=== PATIENT | female | born 1975 | race Caucasian/White ===

== ENCOUNTER 2020-02-04 14:15 | Inpatient (IN) | payer MEDICAID, OTHER ==
[~2020-02-04] VITALS: Ht 162.6 cm; Wt 114.2 kg
[2020-02-04 15:51] LABS: Basophils # (auto) 0 10 ^3/uL (0-0.2); Basophils % (auto) 0.5 % (0.0-2.0); Eosinophils # (auto) 0 10 ^3/uL (0-0.8); Eosinophils % (auto) 0.1 % (0.0-7.0); Hematocrit 43.2 % (36.0-46.0); Hemoglobin 13.9 g/dL (12.2-16.2); Lymphocytes # (auto) 1.1 10 ^3/uL (0.4-5.4); Lymphocytes % (auto) 22.7 % (10.0-50.0); Mean Corpuscular Hgb Conc. 32.2 g/dL (32.0-36.0); Monocytes # (auto) 0.5 10 ^3/uL (0-1.3); Monocytes % (auto) 11.4 % (0.0-12.0); Neutrophils # (auto) 3.1 10 ^3/uL (1.6-8.6); Neutrophils % (auto) 65.3 % (37.0-80.0); Platelet Count (auto) 204 10^3/uL (140-450); Red Blood Cells 4.97 10^6/uL (4.0-5.20); Red Cell Distribution Width 14.7 % (11.8-14.3); White Blood Cell 4.7 10^3/uL (4.4-10.8)
[2020-02-04] MEDS ORDERED: PANTOPRAZOLE 40 MG/10 ML VIAL INJ IV ONE (16:00)
[2020-02-04] MEDS ORDERED: SODIUM CHLORIDE 0.9% 1,000 ML IV ONE (16:00)
[2020-02-04] MEDS ORDERED: DOXYCYCLINE 100 MG TAB/CAP PO ONE (16:00)
[2020-02-04] MEDS ORDERED: cefTRIAXone 1GM/50ML D5W 50 ML IV ONE (16:00)
[2020-02-04] MEDS ORDERED: ONDANSETRON HCL 4 MG/2 ML VIAL IV ONE (16:00)
[2020-02-04 16:37] LABS: Albumin 3.5 g/dL (3.4-5.0); Calcium 8.6 mg/dL (8.5-10.1); Potassium 4.4 mmol/L (3.5-5.1)
[2020-02-04 16:38] LABS: Amylase 36 U/L (25-115); Lipase 91 U/L (73-393)
[2020-02-04 16:40] LABS: BUN/Creatinine Ratio 10.4; Bilirubin, Total 0.2 mg/dL (0.2-1.0); Total Protein 8.3 g/dL (6.4-8.2)
[2020-02-04] MEDS ORDERED: ZINC SULFATE 220mg CAP or TAB PO ONE (16:45)
[2020-02-04] MEDS ORDERED: ASCORBIC ACID 500 MG TAB PO ONE (16:45)
[2020-02-04 16:50] LABS: Urine Bacteria FEW /hpf (None Seen); Urine Blood Negative /uL (Negative); Urine Mucus FEW (None Seen); Urine Specific Gravity 1.026 (1.001-1.035); Urine WBC 2 /hpf (0 - 5)
[2020-02-04 17:07] LABS: Alcohol, Urine < 3.0 mg/dL (0-10); Amphetamine Screen, Urine NEGATIVE (NEGATIVE); Barbiturate Scree,Urine NEGATIVE (NEGATIVE); Benzodiazephine Screen, Urine NEGATIVE (NEGATIVE); Cannabinoid Screen, Urine POSITIVE (NEGATIVE); Cocaine Screen, Urine NEGATIVE (NEGATIVE); Opiate Scree,Urine NEGATIVE (NEGATIVE); Phencyclidine Screen, Urine NEGATIVE (NEGATIVE)
[2020-02-04] MEDS ORDERED: FUROSEMIDE 20 MG/2 ML VIAL IV ONE (17:45)
[2020-02-04] MEDS ORDERED: DOCUSATE SOD 100 MG CAP PO PRN (17:45)
[2020-02-04] MEDS ORDERED: FAMOTIDINE 20 MG TAB PO ONE (17:45)
[2020-02-04] MEDS ORDERED: MORPHINE SULF INJ 2 MG/ML SYRINGE 1ML IV PRN (17:45)
[2020-02-04] MEDS ORDERED: ACETAMINOPHEN 500 MG TAB PO PRN (17:45)
[2020-02-04] MEDS ORDERED: ALUM & MAG HYDROX-SIMETH LIQ(MAALOX) 30 ML PO PRN (17:45)
[2020-02-04] MEDS ORDERED: NITROGLYCERIN 0.4 MG SL TAB SL PRN (17:45)
[2020-02-04] MEDS ORDERED: DexAMETHasone 4 MG TAB PO ONE (17:45)
[2020-02-04] MEDS: FUROSEMIDE 20 MG/2 ML VIAL IV SCH (18:00)
[2020-02-04] MEDS: SODIUM CHLORIDE 0.9% 1,000 ML IV SCH (18:01)
[2020-02-04 18:34] LABS: Cholesterol 185 mg/dL (< 200); HDL Cholesterol 40 mg/dL (40-59); LDL Cholesterol 136 mg/dL (< 100); Triglycerides 97 mg/dL (< 150)
[2020-02-04 18:58] LABS: CRP High Sensitivity 0.77 mg/dL (< 0.3); Magnesium 2.4 mg/dL (1.6-2.6)
[2020-02-04] MEDS: LORazepam 0.5 MG TAB PO PRN (20:41)
[2020-02-04] MEDS: ONDANSETRON HCL 4 MG/2 ML VIAL IV PRN (20:42)
[2020-02-04] MEDS ORDERED: BUDESONIDE (INHALATION) 180 MCG IH IN SCH (22:00)
[2020-02-04] MEDS ORDERED: ALBUTEROL SULF HFA 90MCG INH 200DOSE IN SCH (22:00)
[2020-02-04] MEDS: FAMOTIDINE 20 MG TAB PO SCH (23:30)
[2020-02-04] MEDS: DOXYCYCLINE 100MG/250ML 250 ML IV SCH (23:30)
[2020-02-04] MEDS: HYDROcodone-ACET 5/325MG TAB PO PRN (23:31)
[2020-02-04] MEDS: guaiFENesin-CODEINE Liq 5 ML UD PO PRN (23:31)
[2020-02-05] MEDS: ACETAMINOPHEN 325 MG TAB PO PRN (02:46)
[2020-02-05] MEDS ORDERED: CITA-73 PO (03:06)
[2020-02-05] MEDS: LORazepam 0.5 MG TAB PO PRN (03:40)
[2020-02-05] MEDS: guaiFENesin-CODEINE Liq 5 ML UD PO PRN ×3 (03:40→20:39)
[2020-02-05 05:00] VITALS: BP_SYST 100; BP_SYST 103; BP_DIAS 50
[2020-02-05] MEDS: FUROSEMIDE 20 MG/2 ML VIAL IV SCH ×2 (05:17→18:33)
[2020-02-05 05:47] LABS: Basophils # (auto) 0 10 ^3/uL (0-0.2); Basophils % (auto) 0.5 % (0.0-2.0); Eosinophils # (auto) 0 10 ^3/uL (0-0.8); Eosinophils % (auto) 0.1 % (0.0-7.0); Hemoglobin 12.9 g/dL (12.2-16.2); Lymphocytes # (auto) 1.1 10 ^3/uL (0.4-5.4); Lymphocytes % (auto) 27.5 % (10.0-50.0); Mean Corpuscular Hemoglobin 28.4 pg (28.0-32.0); Monocytes # (auto) 0.4 10 ^3/uL (0-1.3); Monocytes % (auto) 9.8 % (0.0-12.0); Neutrophils # (auto) 2.6 10 ^3/uL (1.6-8.6); Neutrophils % (auto) 62.1 % (37.0-80.0); Nucleated Red Blood Cells % 0.1 %; Platelet Count (auto) 192 10^3/uL (140-450); Red Blood Cells 4.54 10^6/uL (4.0-5.20); Red Cell Distribution Width 14.8 % (11.8-14.3); White Blood Cell 4.1 10^3/uL (4.4-10.8)
[2020-02-05 06:00] LABS: INR 0.98 (0.9-1.15); Partial Thromboplastin Time 28.2 sec (23.0-31.2)
[2020-02-05 06:03] LABS: Chloride 105 mmol/L (98-107); Potassium 3.7 mmol/L (3.5-5.1); Sodium 134 mmol/L (136-145)
[2020-02-05 06:11] LABS: Alanine Aminotransferase 23 U/L (13-56); Albumin 3.2 g/dL (3.4-5.0); Alkaline Phosphatase 93 U/L (45-117); Anion Gap 7 (5-15); Aspartate Aminotransferase 18 U/L (15-37); BUN/Creatinine Ratio 14.3; Bilirubin, Total 0.2 mg/dL (0.2-1.0); Blood Urea Nitrogen 10 mg/dL (7-18); CRP High Sensitivity 0.75 mg/dL (< 0.3); Calcium 8.1 mg/dL (8.5-10.1); Carbon Dioxide 22 mmol/L (21-32); GFR African American 118 mL/min; GFR Non-African American 98 mL/min; Glucose 112 mg/dL (74-106); Lactate Dehydrogenase 190 U/L (84-246); Magnesium 2.2 mg/dL (1.6-2.6); Total Protein 7.9 g/dL (6.4-8.2); Uric Acid 3.2 mg/dL (2.6-6.0)
--- NOTE | 2020-02-05 07:30 | NUR ---
Opening Shift Note Assumed care of patient, awake and alert. No S/S of distress/SOB or pain. Instructed on POC and to call for assist PRN, will continue to monitor for changes Q1hr and PRN.
[2020-02-05 09:00] VITALS: BP 138/78
[2020-02-05] MEDS: BUDESONIDE (INHALATION) 180 MCG IH IN SCH ×3 (10:00→21:22)
[2020-02-05] MEDS: DOXYCYCLINE 100MG/250ML 250 ML IV SCH ×2 (10:14→23:06)
[2020-02-05] MEDS: DexAMETHasone 4 MG TAB PO SCH (10:15)
[2020-02-05] MEDS: ZINC SULFATE 220mg CAP or TAB PO SCH (10:15)
[2020-02-05] MEDS: FAMOTIDINE 20 MG TAB PO SCH ×2 (10:15→23:06)
[2020-02-05] MEDS: CHOLECALCIFEROL (VITD3) 2,000 UNIT CAP PO SCH (10:16)
[2020-02-05] MEDS: ASCORBIC ACID 1,000 MG TAB PO SCH (10:16)
[2020-02-05] MEDS: ENOXAPARIN SOD 40 MG/0.4 ML SYRINGE SC SCH (10:16)
[2020-02-05] MEDS: SODIUM CHLORIDE 0.9% 1,000 ML IV SCH (11:31)
[2020-02-05] MEDS: ONDANSETRON HCL 4 MG/2 ML VIAL IV PRN ×3 (11:36→20:38)
[2020-02-05] MEDS: MORPHINE SULF INJ 2 MG/ML SYRINGE 1ML IV PRN ×2 (12:27→18:33)
[2020-02-05 12:46] VITALS: BP 108/73
[2020-02-05 13:35] VITALS: BP 108/74
[2020-02-05] MEDS: ALBUTEROL SULF HFA 90MCG INH 200DOSE IN SCH ×2 (14:00→21:21)
--- NOTE | 2020-02-05 14:26 | NUR ---
Respiratory note: PT HAS BEEN COUGHING ALL MORNING. PT HAS STOPPED COUGHING AND WANTS TO REST. PT CONCERNED MDI COULD MAKE HER START COUGHING AGAIN.
--- NOTE | 2020-02-05 19:20 | NUR ---
Opening Shift Note Assumed care of patient, awake and alert. No S/S of distress/SOB or pain. Safety measures in place bed in lowest position, side rails up x2, and call light within reach. Instructed on POC and to call for assist PRN, will continue to monitor for changes Q1hr and PRN.
--- NOTE | 2020-02-05 21:24 | NUR ---
RT NOTE PT WAS SEEN BY RT FOR MDI TX. PT TOLERATES ALBUTEROL WELL VIA SPACER. PT RINSED MOUTH POST PULMICORT INHALER. CONT ORDERED Addendum: 02/05/20 at 2126 by Tanja Orlando RT Amended: Links added.
[2020-02-05 22:33] VITALS: BP 114/70
[2020-02-06] MEDS: LORazepam 0.5 MG TAB PO PRN ×4 (02:00→21:59)
[2020-02-06] MEDS: ONDANSETRON HCL 4 MG/2 ML VIAL IV PRN ×5 (02:00→20:33)
[2020-02-06] MEDS: SODIUM CHLORIDE 0.9% 1,000 ML IV SCH ×2 (02:58→20:34)
[2020-02-06 05:20] VITALS: BP 109/62
[2020-02-06] MEDS: FUROSEMIDE 20 MG/2 ML VIAL IV SCH ×2 (06:22→18:31)
[2020-02-06] MEDS: BUDESONIDE (INHALATION) 180 MCG IH IN SCH ×2 (06:34→21:41)
[2020-02-06] MEDS: ALBUTEROL SULF HFA 90MCG INH 200DOSE IN SCH ×3 (06:34→21:41)
[2020-02-06] MEDS: HYDROcodone-ACET 5/325MG TAB PO PRN (06:36)
--- NOTE | 2020-02-06 07:25 | NUR ---
Opening Shift Note Assumed care of patient, awake and alert. No S/S of distress, reports SOB with activity, reports chest pain. Instructed on POC and to call for assist PRN, will continue to monitor for changes Q1hr and PRN.
[2020-02-06] MEDS: MORPHINE SULF INJ 2 MG/ML SYRINGE 1ML IV PRN ×2 (08:03→14:03)
[2020-02-06 09:00] VITALS: BP_SYST 103; BP_SYST 137; BP_DIAS 74; BP_DIAS 75
[2020-02-06] MEDS: ZINC SULFATE 220mg CAP or TAB PO SCH (10:39)
[2020-02-06] MEDS: DOXYCYCLINE 100MG/250ML 250 ML IV SCH ×2 (10:40→21:59)
[2020-02-06] MEDS: FAMOTIDINE 20 MG TAB PO SCH ×2 (10:40→21:59)
[2020-02-06] MEDS: DexAMETHasone 4 MG TAB PO SCH (10:40)
[2020-02-06] MEDS: ENOXAPARIN SOD 40 MG/0.4 ML SYRINGE SC SCH (10:41)
[2020-02-06] MEDS: CHOLECALCIFEROL (VITD3) 2,000 UNIT CAP PO SCH (10:41)
[2020-02-06] MEDS: ASCORBIC ACID 1,000 MG TAB PO SCH (10:41)
[2020-02-06 12:42] VITALS: BP 116/67
[2020-02-06 17:00] VITALS: BP 117/69
--- NOTE | 2020-02-06 21:40 | NUR ---
PT REFUSED MDI'S AT THIS TIME. STATED SHE IS TOO NAUSEATED FOR THE MEDS. POX ON ROOM AIR IS 98% RR 20
[2020-02-06 22:00] VITALS: BP 113/70
[2020-02-07] MEDS: ONDANSETRON HCL 4 MG/2 ML VIAL IV PRN ×4 (04:20→22:15)
[2020-02-07 05:00] VITALS: BP 112/64
[2020-02-07] MEDS: FUROSEMIDE 20 MG/2 ML VIAL IV SCH ×2 (05:48→18:05)
[2020-02-07] MEDS: ALBUTEROL SULF HFA 90MCG INH 200DOSE IN SCH ×3 (06:35→21:22)
[2020-02-07] MEDS: BUDESONIDE (INHALATION) 180 MCG IH IN SCH ×2 (06:36→21:23)
[2020-02-07 09:00] VITALS: BP 99/63
[2020-02-07] MEDS: ZINC SULFATE 220mg CAP or TAB PO SCH (10:00)
[2020-02-07] MEDS: DOXYCYCLINE 100MG/250ML 250 ML IV SCH ×2 (10:02→22:16)
[2020-02-07] MEDS: FAMOTIDINE 20 MG TAB PO SCH ×2 (10:03→22:16)
[2020-02-07] MEDS: DexAMETHasone 4 MG TAB PO SCH (10:03)
[2020-02-07] MEDS: ASCORBIC ACID 1,000 MG TAB PO SCH (10:04)
[2020-02-07] MEDS: CHOLECALCIFEROL (VITD3) 2,000 UNIT CAP PO SCH (10:04)
[2020-02-07] MEDS: ENOXAPARIN SOD 40 MG/0.4 ML SYRINGE SC SCH (10:07)
[2020-02-07] MEDS: SODIUM CHLORIDE 0.9% 1,000 ML IV SCH (12:18)
[2020-02-07 13:00] VITALS: BP 103/68
[2020-02-07 17:00] VITALS: BP 113/64
--- NOTE | 2020-02-07 19:30 | NUR ---
Opening Shift Note Assumed care of patient, awake and alert. No S/S of distress/SOB or pain. Instructed on POC and to call for assist PRN. Bed in lowest locked position, call light within reach, side rails up x2. Will continue to monitor for changes Q1hr and PRN.
[2020-02-07 22:00] VITALS: BP 138/84
[2020-02-08] MEDS: LORazepam 0.5 MG TAB PO PRN (00:03)
[2020-02-08] MEDS: ONDANSETRON HCL 4 MG/2 ML VIAL IV PRN (04:23)
[2020-02-08] MEDS: SODIUM CHLORIDE 0.9% 1,000 ML IV SCH ×2 (04:24→21:38)
[2020-02-08 05:00] VITALS: BP 137/70
[2020-02-08] MEDS: FUROSEMIDE 20 MG/2 ML VIAL IV SCH ×2 (06:00→17:55)
--- NOTE | 2020-02-08 06:40 | NUR ---
IV discontinued IV infiltrated, removed with catheter fully intact. Pressure dressing applied. Attempted new IV insertion, per patient "can we wait until later? I had a bad night and I barely fell asleep." Will endorse to day RN.
[2020-02-08] MEDS: ALBUTEROL SULF HFA 90MCG INH 200DOSE IN SCH ×3 (07:09→21:49)
[2020-02-08] MEDS: BUDESONIDE (INHALATION) 180 MCG IH IN SCH ×2 (07:09→21:49)
[2020-02-08 07:32] LABS: Basophils # (auto) 0 10 ^3/uL (0-0.2); Basophils % (auto) 0.2 % (0.0-2.0); Eosinophils # (auto) 0 10 ^3/uL (0-0.8); Eosinophils % (auto) 0.1 % (0.0-7.0); Hematocrit 38.4 % (36.0-46.0); Hemoglobin 12.9 g/dL (12.2-16.2); Lymphocytes # (auto) 1.2 10 ^3/uL (0.4-5.4); Lymphocytes % (auto) 23.5 % (10.0-50.0); Mean Corpuscular Hemoglobin 28.7 pg (28.0-32.0); Mean Corpuscular Hgb Conc. 33.5 g/dL (32.0-36.0); Mean Corpuscular Volume 85.8 fL (80.0-100.0); Monocytes # (auto) 0.7 10 ^3/uL (0-1.3); Monocytes % (auto) 13.8 % (0.0-12.0); Neutrophils # (auto) 3.2 10 ^3/uL (1.6-8.6); Neutrophils % (auto) 62.4 % (37.0-80.0); Platelet Count (auto) 233 10^3/uL (140-450); Red Blood Cells 4.47 10^6/uL (4.0-5.20); White Blood Cell 5.2 10^3/uL (4.4-10.8)
[2020-02-08 07:42] LABS: Potassium 3.1 mmol/L (3.5-5.1)
[2020-02-08 07:51] LABS: Albumin 3.3 g/dL (3.4-5.0); BUN/Creatinine Ratio 9.9; Bilirubin, Total 0.3 mg/dL (0.2-1.0); Calcium 8.7 mg/dL (8.5-10.1); Total Protein 7.8 g/dL (6.4-8.2)
[2020-02-08 09:00] VITALS: BP 105/48
--- NOTE | 2020-02-08 09:05 | NUR ---
at bedside MD Kaminski at bedside, aware of patient's status. New orders received for chest xray, cbc, cmp tomorrow. Will cont to monito. Unable to obtain IV acces at this time, will try again later MD aware
[2020-02-08] MEDS: ASCORBIC ACID 1,000 MG TAB PO SCH (09:50)
[2020-02-08] MEDS: CHOLECALCIFEROL (VITD3) 2,000 UNIT CAP PO SCH (09:50)
[2020-02-08] MEDS: DexAMETHasone 4 MG TAB PO SCH (09:50)
[2020-02-08] MEDS: ZINC SULFATE 220mg CAP or TAB PO SCH (09:51)
[2020-02-08] MEDS: FAMOTIDINE 20 MG TAB PO SCH ×2 (09:51→22:09)
[2020-02-08] MEDS: ENOXAPARIN SOD 40 MG/0.4 ML SYRINGE SC SCH ×2 (09:52→22:10)
[2020-02-08] MEDS: ACETAMINOPHEN 325 MG TAB PO PRN (11:17)
--- NOTE | 2020-02-08 11:17 | NUR ---
Patient c/o headache and requesting tylenol at this time for pain 04/14. Medicated as ordered. Will cont to monitor
--- NOTE | 2020-02-08 12:17 | NUR ---
Patient denies any pain at this time. Cont care
[2020-02-08 13:00] VITALS: BP 130/80
--- NOTE | 2020-02-08 14:18 | NUR ---
Assessment Patient is a 44-year-old female who is alert and oriented. Prior to admission patient lived with family and functioned independently. Patient informed me she can care for her own ADLs. Patient informed me she does not have any medical equipment now. Per patient she will return home to her prior living arrangements and family will transport her home. Patient does not have a primary doctor. Advised patient to contact health plan so they can assign her one and she can follow up with her Primary doctor after discharge. Informed patient she has the right to participate in all discharge planning. Patient verbalize understanding.
[2020-02-08] MEDS ORDERED: METOCLOPRAMIDE HCL 10 MG TAB PO ONE (15:00)
--- NOTE | 2020-02-08 16:00 | NUR ---
Nutrition Assessment Notes Please refer to link for full assessment notes. Est Energy needs: 2635-9340 kcals (12-15 kcal/kgBW) Est Protein needs: 109-136 gms/day (1.5-2.0 gm/kgIBW) Will continue to monitor and reassess prn. Addendum: 02/08/20 at [address] Amended: Links added.
[2020-02-08 16:46] VITALS: BP 101/55
[2020-02-08] MEDS: DOXYCYCLINE 100MG/250ML 250 ML IV SCH (17:00)
--- NOTE | 2020-02-08 19:02 | NUR ---
Patient care endorsed to Jennifer engle. Patient laying in bed in no acute distress or sob noted at this time. Call light within reach
[2020-02-08 21:51] VITALS: BP 111/63
[2020-02-09] MEDS: HYDROcodone-ACET 5/325MG TAB PO PRN (00:08)
[2020-02-09] MEDS: METOCLOPRAMIDE HCL 10 MG TAB PO PRN ×3 (00:08→18:08)
[2020-02-09 05:00] VITALS: BP 100/56
[2020-02-09] MEDS: DOXYCYCLINE 100MG/250ML 250 ML IV SCH ×2 (05:36→18:07)
[2020-02-09] MEDS: FUROSEMIDE 20 MG/2 ML VIAL IV SCH ×2 (05:36→18:07)
[2020-02-09] MEDS: BUDESONIDE (INHALATION) 180 MCG IH IN SCH ×2 (06:22→22:03)
[2020-02-09] MEDS: ALBUTEROL SULF HFA 90MCG INH 200DOSE IN SCH ×3 (06:22→22:02)
[2020-02-09 07:10] LABS: Basophils # (auto) 0 10 ^3/uL (0-0.2); Basophils % (auto) 0.2 % (0.0-2.0); Eosinophils # (auto) 0 10 ^3/uL (0-0.8); Hematocrit 37.9 % (36.0-46.0); Hemoglobin 12.3 g/dL (12.2-16.2); Mean Corpuscular Hemoglobin 28.2 pg (28.0-32.0); Mean Corpuscular Hgb Conc. 32.5 g/dL (32.0-36.0); Mean Corpuscular Volume 86.8 fL (80.0-100.0); Monocytes # (auto) 0.6 10 ^3/uL (0-1.3); Monocytes % (auto) 8.1 % (0.0-12.0); Neutrophils # (auto) 5.4 10 ^3/uL (1.6-8.6); Neutrophils % (auto) 77.7 % (37.0-80.0); Platelet Count (auto) 269 10^3/uL (140-450); Red Blood Cells 4.37 10^6/uL (4.0-5.20); Red Cell Distribution Width 14.4 % (11.8-14.3)
[2020-02-09 07:35] LABS: Potassium 3.4 mmol/L (3.5-5.1)
[2020-02-09 07:52] LABS: Albumin 3.1 g/dL (3.4-5.0); BUN/Creatinine Ratio 21.7; Bilirubin, Total 0.3 mg/dL (0.2-1.0); Calcium 8.6 mg/dL (8.5-10.1); Total Protein 7.4 g/dL (6.4-8.2)
[2020-02-09 09:00] VITALS: BP 117/60
[2020-02-09] MEDS: FAMOTIDINE 20 MG TAB PO SCH ×2 (10:21→21:35)
[2020-02-09] MEDS: DexAMETHasone 4 MG TAB PO SCH (10:21)
[2020-02-09] MEDS: ASCORBIC ACID 1,000 MG TAB PO SCH (10:21)
[2020-02-09] MEDS: ENOXAPARIN SOD 40 MG/0.4 ML SYRINGE SC SCH ×2 (10:21→21:35)
[2020-02-09] MEDS: CHOLECALCIFEROL (VITD3) 2,000 UNIT CAP PO SCH (10:21)
[2020-02-09] MEDS: ZINC SULFATE 220mg CAP or TAB PO SCH (10:21)
--- NOTE | 2020-02-09 12:24 | NUR ---
N/V Patient states she threw up in the bathroom. No emesis noted at this time but patient also states she started bleeding "out of her vagina again". She states she was on her period 2 days ago but restarted today. VSS. Patient medicated with Reglan as ordered, MD Kaminski aware and new orders to jackelin Longo received. Patient assisted to get cleaned up and back to bed she states feeling better. Call light within reach. Will cont care
[2020-02-09 13:00] VITALS: BP 125/65
[2020-02-09] MEDS: SODIUM CHLORIDE 0.9% 1,000 ML IV SCH (14:18)
[2020-02-09 16:30] VITALS: BP 112/54
--- NOTE | 2020-02-09 17:20 | NUR ---
Pulm at bedside MD Ramírez aware of patient's status. Patient currently on room air and sats WNL. No new orders received. Cont care
--- NOTE | 2020-02-09 18:00 | NUR ---
Patient denies emesis today, states nausea at this time. Pt tolerating meals well she states. Medicated with Reglan as ordered. Cont care
--- NOTE | 2020-02-09 19:10 | NUR ---
Patient care endorsed to Carlita engle. Patient sitting up in bed no acute distress or sob noted. Call light within reach
[2020-02-09 22:00] VITALS: BP 107/58
[2020-02-10 05:00] VITALS: BP 106/64
[2020-02-10] MEDS: METOCLOPRAMIDE HCL 10 MG TAB PO PRN (05:36)
[2020-02-10] MEDS: FUROSEMIDE 20 MG/2 ML VIAL IV SCH ×2 (05:36→18:00)
[2020-02-10] MEDS: SODIUM CHLORIDE 0.9% 1,000 ML IV SCH (06:11)
[2020-02-10 06:21] LABS: Basophils # (auto) 0 10 ^3/uL (0-0.2); Basophils % (auto) 0.2 % (0.0-2.0); Eosinophils # (auto) 0 10 ^3/uL (0-0.8); Eosinophils % (auto) 0.2 % (0.0-7.0); Hematocrit 38.3 % (36.0-46.0); Hemoglobin 12.5 g/dL (12.2-16.2); Lymphocytes # (auto) 2.3 10 ^3/uL (0.4-5.4); Lymphocytes % (auto) 22.2 % (10.0-50.0); Mean Corpuscular Hemoglobin 28.1 pg (28.0-32.0); Mean Corpuscular Hgb Conc. 32.6 g/dL (32.0-36.0); Mean Corpuscular Volume 86.1 fL (80.0-100.0); Monocytes % (auto) 9.6 % (0.0-12.0); Neutrophils # (auto) 7.2 10 ^3/uL (1.6-8.6); Neutrophils % (auto) 67.8 % (37.0-80.0); Nucleated Red Blood Cells % 0.1 %; Platelet Count (auto) 314 10^3/uL (140-450); Red Blood Cells 4.45 10^6/uL (4.0-5.20); Red Cell Distribution Width 14.4 % (11.8-14.3); White Blood Cell 10.6 10^3/uL (4.4-10.8)
[2020-02-10 06:25] LABS: Albumin 3.1 g/dL (3.4-5.0); Calcium 8.7 mg/dL (8.5-10.1); Potassium 3.1 mmol/L (3.5-5.1)
[2020-02-10 06:29] LABS: BUN/Creatinine Ratio 17.8; Bilirubin, Total 0.3 mg/dL (0.2-1.0); Total Protein 7.3 g/dL (6.4-8.2)
[2020-02-10] MEDS: BUDESONIDE (INHALATION) 180 MCG IH IN SCH (06:33)
[2020-02-10] MEDS: ALBUTEROL SULF HFA 90MCG INH 200DOSE IN SCH ×2 (06:33→14:12)
--- NOTE | 2020-02-10 07:30 | NUR ---
Opening Shift Note Assumed care of patient, awake and alert. No S/S of distress/SOB or pain. Instructed on POC and to call for assistance PRN, will continue to monitor for changes Q1hr and PRN.
[2020-02-10 09:00] VITALS: BP 113/71
[2020-02-10] MEDS: FAMOTIDINE 20 MG TAB PO SCH (10:37)
[2020-02-10] MEDS: CHOLECALCIFEROL (VITD3) 2,000 UNIT CAP PO SCH (10:37)
[2020-02-10] MEDS: DexAMETHasone 4 MG TAB PO SCH (10:37)
[2020-02-10] MEDS: ZINC SULFATE 220mg CAP or TAB PO SCH (10:37)
[2020-02-10] MEDS: ENOXAPARIN SOD 40 MG/0.4 ML SYRINGE SC SCH (10:37)
[2020-02-10] MEDS: ASCORBIC ACID 1,000 MG TAB PO SCH (10:38)
--- NOTE | 2020-02-10 12:50 | NUR ---
Pulmonary paged for D/C clearance Dr. Ramírez paged to obtain pulmonary clearance. Patient has been cleared out for D/C by Dr. Kaminski if clearance by Dr. Ramírez is obtained. Awaiting call back.
[2020-02-10 13:00] VITALS: BP 104/63
--- NOTE | 2020-02-10 13:46 | NUR ---
2nd page for D/C clearance Dr. Darrell holloway to obtain pulmonary clearance.
[2020-02-10 17:00] VITALS: BP 121/75
--- NOTE | 2020-02-10 18:58 | NUR ---
Discharge instructions given as ordered. Encourage to follow up with PMD as instructed. All questions and concerns addressed. Patient verbalized understanding. IV removed with catheter intact, pressure dressing applied. Telemetry unit returned to ICU. Patient taken to vehicle via wheelchair with all personal belongings, accompanied by staff. No distress noted at time of departure.
== END 2020-02-10 16:58 | disposition home or self-care (01) | DRG 137 ==
LOC: ER 14:15 → EDBD 14:15 → TELE 14:16 → TELE-EAST 02-05 04:40
PROVIDERS: ADMIT Hospitalist; ATTEND Internal Medicine
DX: U07.1 COVID-19 (principal); J96.01 Acute respiratory failure with hypoxia; J98.11 Atelectasis; Z68.41 Body mass index [BMI] 40.0-44.9, adult; E66.01 Morbid (severe) obesity due to excess calories; J12.89 Other viral pneumonia; E86.0 Dehydration; R43.9 Unspecified disturbances of smell and taste; R63.0 Anorexia; F41.9 Anxiety disorder, unspecified; E78.5 Hyperlipidemia, unspecified; F12.10 Cannabis abuse, uncomplicated; F17.200 Nicotine dependence, unspecified, uncomplicated; Y90.9 Presence of alcohol in blood, level not specified; Z90.49 Acquired absence of other specified parts of digestive tract; F10.20 Alcohol dependence, uncomplicated
CPT/HCPCS: 36415; 71045; 80053; 80061; 80307; 81001; 82150; 82728; 83036; 83605; 83615; 83690; 83735; 84100; 84443; 84484; 84550; 85025; 85379; 85610; 85730; 86141; 87040; 87070; 87086; 87804; 87880; 93005; 94640; 96361; 96365; 96367; 96375; C9113; G0378; J0696; J2405; J3490

== ENCOUNTER 2021-01-08 13:21 | Emergency (ER) | payer MEDICAID ==
[~2021-01-08] VITALS: Ht 149.9 cm; Wt 113.4 kg
[~2021-01-08 13:21] MED LIST: CITA-73 PO
[2021-01-08] MEDS ORDERED: SODIUM CHLORIDE 0.9% 1,000 ML IVB ONE (14:30)
[2021-01-08] MEDS ORDERED: MORPHINE SULFATE 4 MG/ML SYR/VIAL IV ONE (14:30)
[2021-01-08] MEDS ORDERED: ONDANSETRON HCL 4 MG/2 ML VIAL IV ONE (14:30)
[2021-01-08] MEDS ORDERED: KETOROLAC TROMETH 30 MG/ML 1ML VIAL IV ONE (14:30)
[2021-01-08 14:34] LABS: Urine WBC None Seen /hpf (0 - 5)
[2021-01-08 15:01] LABS: Urine Amorphous Crystal FEW /hpf (None Seen); Urine Bacteria FEW /hpf (None Seen); Urine Blood Negative /uL (Negative); Urine Mucus FEW (None Seen); Urine Specific Gravity 1.017 (1.001-1.035)
[2021-01-08 15:29] LABS: Basophils # (auto) 0.1 10 ^3/uL (0-0.2); Basophils % (auto) 0.8 % (0.0-2.0); Eosinophils # (auto) 0.2 10 ^3/uL (0-0.8); Eosinophils % (auto) 2.1 % (0.0-7.0); Hematocrit 37.3 % (36.0-46.0); Hemoglobin 12.8 g/dL (12.2-16.2); Lymphocytes # (auto) 2.7 10 ^3/uL (0.4-5.4); Lymphocytes % (auto) 24.3 % (10.0-50.0); Mean Corpuscular Hemoglobin 29.3 pg (28.0-32.0); Mean Corpuscular Hgb Conc. 34.3 g/dL (32.0-36.0); Mean Corpuscular Volume 85.3 fL (80.0-100.0); Monocytes # (auto) 0.8 10 ^3/uL (0-1.3); Monocytes % (auto) 7.1 % (0.0-12.0); Neutrophils # (auto) 7.2 10 ^3/uL (1.6-8.6); Neutrophils % (auto) 65.7 % (37.0-80.0); Platelet Count (auto) 326 10^3/uL (140-450); Red Blood Cells 4.37 10^6/uL (4.0-5.20); Red Cell Distribution Width 13.7 % (11.8-14.3)
[2021-01-08 15:53] LABS: Albumin 3.2 g/dL (3.4-5.0); BUN/Creatinine Ratio 8.8; Calcium 9.2 mg/dL (8.5-10.1); Potassium 3.9 mmol/L (3.5-5.1)
[2021-01-08 15:56] LABS: Bilirubin, Total 0.3 mg/dL (0.2-1.0); Total Protein 7.8 g/dL (6.4-8.2)
[2021-01-08 20:23] VITALS: BP 114/70
== END 2021-01-08 20:26 | disposition home or self-care (01) ==
LOC: ER 13:21
DX: N83.202 Unspecified ovarian cyst, left side (principal); N83.201 Unspecified ovarian cyst, right side; Z90.49 Acquired absence of other specified parts of digestive tract
CPT/HCPCS: 36415; 74176; 76856; 80053; 81001; 83690; 85025; 85049; 96361; 96374; 96375; 99285; J2270; J2405; J7030

== ENCOUNTER 2021-01-28 10:31 | Inpatient (IN) | payer MEDICAID ==
[~2021-01-28] VITALS: Ht 149.9 cm; Wt 117.9 kg
[2021-01-28] MEDS ORDERED: HYDROmorphone HCL 2 MG/ML VL IV ONE ×2 (10:45→13:30)
[2021-01-28] MEDS ORDERED: ONDANSETRON HCL 4 MG/2 ML VIAL IV ONE ×2 (10:45→13:30)
[2021-01-28 11:32] LABS: Basophils # (auto) 0.1 10 ^3/uL (0-0.2); Basophils % (auto) 0.7 % (0.0-2.0); Eosinophils # (auto) 0.2 10 ^3/uL (0-0.8); Eosinophils % (auto) 2.3 % (0.0-7.0); Hematocrit 37.1 % (36.0-46.0); Hemoglobin 12.7 g/dL (12.2-16.2); Lymphocytes # (auto) 1.2 10 ^3/uL (0.4-5.4); Lymphocytes % (auto) 12.2 % (10.0-50.0); Mean Corpuscular Hemoglobin 29.5 pg (28.0-32.0); Mean Corpuscular Hgb Conc. 34.1 g/dL (32.0-36.0); Mean Corpuscular Volume 86.4 fL (80.0-100.0); Monocytes % (auto) 10.2 % (0.0-12.0); Neutrophils # (auto) 7.4 10 ^3/uL (1.6-8.6); Neutrophils % (auto) 74.6 % (37.0-80.0); White Blood Cell 9.9 10^3/uL (4.4-10.8)
[2021-01-28 11:41] LABS: Albumin 3.1 g/dL (3.4-5.0); Calcium 9.1 mg/dL (8.5-10.1); Potassium 4.5 mmol/L (3.5-5.1)
[2021-01-28 11:44] LABS: BUN/Creatinine Ratio 9.8; Bilirubin, Total 0.2 mg/dL (0.2-1.0); Total Protein 7.7 g/dL (6.4-8.2)
[2021-01-28 13:44] LABS: Urine Bacteria FEW /hpf (None Seen); Urine Blood 3+ /uL (Negative); Urine Specific Gravity 1.014 (1.001-1.035); Urine WBC 3 /hpf (0 - 5)
[2021-01-28] MEDS ORDERED: OXYCODONE W/ ACETAMINOPHEN 5/325MG TABLET PO PRN (15:00)
[2021-01-28] MEDS: LIDOCAINE 5% TOPICAL PATCH TOP SCH (15:00)
[2021-01-28] MEDS ORDERED: NITROGLYCERIN 0.4 MG SL TAB SL PRN (15:00)
[2021-01-28] MEDS ORDERED: MORPHINE SULFATE INJECTION 2 MG/ML SYRG IV PRN ×2 (15:00)
[2021-01-28] MEDS ORDERED: BACLOFEN 10 MG TAB PO PRN (15:00)
[2021-01-28] MEDS ORDERED: cefTRIAXone 1GM/50ML D5W 50 ML IV ONE (15:15)
[2021-01-28] MEDS: HYDROmorphone HCL 2 MG/ML VL IV PRN ×2 (16:38→23:30)
[2021-01-28] MEDS: DOCUSATE SOD 100 MG CAP PO SCH (22:00)
[2021-01-28] MEDS ORDERED: ONDANSETRON HCL 4 MG/2 ML VIAL ONE (23:28)
[2021-01-29] MEDS ORDERED: ONDANSETRON HCL 4 MG/2 ML VIAL ONE (04:58)
[2021-01-29] MEDS: HYDROmorphone HCL 2 MG/ML VL IV PRN ×4 (05:16→19:34)
[2021-01-29] MEDS: ONDANSETRON HCL 4 MG/2 ML VIAL IV PRN ×5 (05:17→21:31)
[2021-01-29] MEDS: cefTRIAXone 1GM/50ML D5W 50 ML IV SCH (09:20)
[2021-01-29] MEDS: DOCUSATE SOD 100 MG CAP PO SCH ×2 (10:39→21:31)
[2021-01-29] MEDS: LIDOCAINE 5% TOPICAL PATCH TOP SCH (10:39)
[2021-01-29 16:44] VITALS: BP 138/70
[2021-01-29 20:00] VITALS: BP 127/66
[2021-01-29 22:00] VITALS: BP 127/66
[2021-01-30] VITALS (7 sets, daily range): BP systolic 112–128; BP diastolic 59–73
[2021-01-30] MEDS: HYDROmorphone HCL 2 MG/ML VL IV PRN ×4 (06:18→21:35)
[2021-01-30] MEDS: ONDANSETRON HCL 4 MG/2 ML VIAL IV PRN ×3 (06:19→21:35)
[2021-01-30] MEDS: cefTRIAXone 1GM/50ML D5W 50 ML IV SCH (08:56)
[2021-01-30] MEDS: LIDOCAINE 5% TOPICAL PATCH TOP SCH (09:00)
[2021-01-30] MEDS: DOCUSATE SOD 100 MG CAP PO SCH ×2 (09:00→21:35)
[2021-01-30] MEDS: predniSONE 5 MG TAB PO SCH (09:00)
[2021-01-31] MEDS: HYDROmorphone HCL 2 MG/ML VL IV PRN ×5 (01:35→20:37)
[2021-01-31] MEDS: ONDANSETRON HCL 4 MG/2 ML VIAL IV PRN ×5 (01:35→20:16)
[2021-01-31 05:00] VITALS: BP 110/70
[2021-01-31 05:55] LABS: Basophils # (auto) 0.1 10 ^3/uL (0-0.2); Basophils % (auto) 0.7 % (0.0-2.0); Eosinophils # (auto) 0.3 10 ^3/uL (0-0.8); Eosinophils % (auto) 3.3 % (0.0-7.0); Hematocrit 34.4 % (36.0-46.0); Hemoglobin 11.9 g/dL (12.2-16.2); Lymphocytes # (auto) 3.1 10 ^3/uL (0.4-5.4); Lymphocytes % (auto) 37.5 % (10.0-50.0); Mean Corpuscular Hemoglobin 29.4 pg (28.0-32.0); Mean Corpuscular Hgb Conc. 34.4 g/dL (32.0-36.0); Mean Corpuscular Volume 85.2 fL (80.0-100.0); Monocytes # (auto) 0.6 10 ^3/uL (0-1.3); Monocytes % (auto) 7.7 % (0.0-12.0); Neutrophils # (auto) 4.2 10 ^3/uL (1.6-8.6); Neutrophils % (auto) 50.8 % (37.0-80.0); Red Blood Cells 4.04 10^6/uL (4.0-5.20); White Blood Cell 8.4 10^3/uL (4.4-10.8)
[2021-01-31 06:20] LABS: Albumin 2.8 g/dL (3.4-5.0); BUN/Creatinine Ratio 18.7; Calcium 8.3 mg/dL (8.5-10.1); Potassium 3.7 mmol/L (3.5-5.1)
[2021-01-31 06:22] LABS: Bilirubin, Total 0.2 mg/dL (0.2-1.0); Total Protein 7.1 g/dL (6.4-8.2)
[2021-01-31 09:00] VITALS: BP 110/67
[2021-01-31] MEDS: cefTRIAXone 1GM/50ML D5W 50 ML IV SCH (09:02)
[2021-01-31] MEDS: DOCUSATE SOD 100 MG CAP PO SCH ×2 (09:46→21:42)
[2021-01-31] MEDS: LIDOCAINE 5% TOPICAL PATCH TOP SCH (09:46)
[2021-01-31] MEDS: predniSONE 5 MG TAB PO SCH (09:46)
[2021-01-31 12:35] VITALS: BP 112/68
[2021-01-31] MEDS: LACTULOSE 20Gm/30ML SOLN PO PRN ×2 (14:08→21:42)
[2021-01-31 16:55] VITALS: BP 126/74
[2021-01-31 20:00] VITALS: BP 128/66
[2021-01-31 22:00] VITALS: BP 138/79
[2021-02-01] MEDS: ONDANSETRON HCL 4 MG/2 ML VIAL IV PRN ×3 (00:43→09:34)
[2021-02-01] MEDS: HYDROmorphone HCL 2 MG/ML VL IV PRN ×3 (00:43→09:34)
[2021-02-01] MEDS: LACTULOSE 20Gm/30ML SOLN PO PRN (03:51)
[2021-02-01 05:00] VITALS: BP 115/68
[2021-02-01 08:56] VITALS: BP 110/52
[2021-02-01] MEDS: LIDOCAINE 5% TOPICAL PATCH TOP SCH (09:34)
== END 2021-02-01 10:15 | disposition home or self-care (01) | DRG 347 ==
LOC: ER 10:31 → EDBD 10:31 → OVERFLOW 14:56 → WEST WING 16:14
PROVIDERS: ADMIT Nurse Practitioner Acute Care; ATTEND Internal Medicine
DX: M51.27 Other intervertebral disc displacement, lumbosacral region (principal); E66.01 Morbid (severe) obesity due to excess calories; F41.9 Anxiety disorder, unspecified; Z68.43 Body mass index [BMI] 50.0-59.9, adult; R31.9 Hematuria, unspecified; M25.562 Pain in left knee; R30.0 Dysuria; K59.00 Constipation, unspecified; G43.909 Migraine, unspecified, not intractable, without status migrainosus; G89.29 Other chronic pain; N83.209 Unspecified ovarian cyst, unspecified side; Z20.822 Contact with and (suspected) exposure to COVID-19; Z87.442 Personal history of urinary calculi; Z90.49 Acquired absence of other specified parts of digestive tract
CPT/HCPCS: 36415; 71045; 72148; 73700; 73721; 76775; 80053; 81001; 81025; 85025; 87426; 96365; 96375; 96376; G0378; J0696; J2405

== ENCOUNTER → 2022-08-21 | Emergency (ER) | payer MEDICAID ==
[~2022-08-21] VITALS: Ht 149.9 cm; Wt 103.2 kg
[~2022-08-21] MED LIST changes: +AZIT500T66 PO; +IBUP800T27 PO; +ONDA-144 PO; +ONDANSETRON ODT 4 MG TAB PO ONE; +cefTRIAXone SOD 1,000 MG VL IM ONE
[2022-08-21 10:48] LABS: Urine Bacteria NONE SEEN /hpf (None Seen); Urine Blood Negative /uL (Negative); Urine Mucus FEW (None Seen); Urine Specific Gravity 1.028 (1.001-1.035); Urine WBC 1 /hpf (0 - 5)
[2022-08-21 11:21] VITALS: BP 129/63
== END | disposition home or self-care (01) ==
LOC: ER 09:48
DX: J03.90 Acute tonsillitis, unspecified (principal); F41.1 Generalized anxiety disorder; M79.10 Myalgia, unspecified site; Z90.49 Acquired absence of other specified parts of digestive tract; Z88.6 Allergy status to analgesic agent
CPT/HCPCS: 71045; 81001; 96372; 99284; J0696; Q0162

== ENCOUNTER 2023-01-31 12:44 | Emergency (ER) | payer MEDICAID ==
[~2023-01-31] VITALS: Ht 149.9 cm; Wt 110.0 kg
[~2023-01-31 12:44] MED LIST changes: +IBUP-1456 PO; -IBUP800T27 PO; -ONDANSETRON ODT 4 MG TAB PO ONE; -cefTRIAXone SOD 1,000 MG VL IM ONE
[2023-01-31 13:47] LABS: Urine Bacteria FEW /hpf (None Seen); Urine Blood 2+ /uL (Negative); Urine Specific Gravity 1.012 (1.001-1.035); Urine WBC 1 /hpf (0 - 5)
[2023-01-31 13:50] LABS: Basophils # (auto) 0.1 10 ^3/uL (0-0.2); Basophils % (auto) 0.7 % (0.0-2.0); Eosinophils # (auto) 0.2 10 ^3/uL (0-0.8); Eosinophils % (auto) 2.3 % (0.0-7.0); Hematocrit 36.6 % (36.0-46.0); Hemoglobin 12.1 g/dL (12.2-16.2); Lymphocytes # (auto) 3.1 10 ^3/uL (0.4-5.4); Lymphocytes % (auto) 31.2 % (10.0-50.0); Mean Corpuscular Hemoglobin 28.9 pg (28.0-32.0); Mean Corpuscular Volume 87.7 fL (80.0-100.0); Monocytes # (auto) 0.8 10 ^3/uL (0-1.3); Monocytes % (auto) 7.7 % (0.0-12.0); Neutrophils # (auto) 5.8 10 ^3/uL (1.6-8.6); Neutrophils % (auto) 58.1 % (37.0-80.0); Red Blood Cells 4.17 10^6/uL (4.0-5.20); Red Cell Distribution Width 14.2 % (11.8-14.3)
[2023-01-31 13:51] LABS: INR 0.97 (0.9-1.15); Partial Thromboplastin Time 27.6 SEC (24.5-34.5)
[2023-01-31 13:58] LABS: Alcohol, Urine < 3.0 mg/dL (0-10); Amphetamine Screen, Urine NEGATIVE (NEGATIVE); Barbiturate Scree,Urine NEGATIVE (NEGATIVE); Benzodiazephine Screen, Urine NEGATIVE (NEGATIVE); Cannabinoid Screen, Urine NEGATIVE (NEGATIVE); Cocaine Screen, Urine NEGATIVE (NEGATIVE); Phencyclidine Screen, Urine NEGATIVE (NEGATIVE)
[2023-01-31 14:14] LABS: Opiate Scree,Urine NEGATIVE (NEGATIVE)
[2023-01-31] MEDS ORDERED: ALBUTEROL SULF 2.5 MG/0.5ML(0.5%) NEB SOLN NEB ONE (14:15)
[2023-01-31] MEDS ORDERED: IPRATROPIUM BROM 0.5 MG/2.5ML INH SOL NEB ONE (14:15)
[2023-01-31 14:37] LABS: Albumin 3.4 g/dL (3.4-5.0); BUN/Creatinine Ratio 13.5 (10.0-20.0); Magnesium 2.2 mg/dL (1.6-2.6)
[2023-01-31 14:39] LABS: Bilirubin, Total 0.2 mg/dL (0.2-1.0); Total Protein 7.7 g/dL (6.4-8.2)
[2023-01-31] MEDS ORDERED: ALBU108A5 IN (15:23)
[2023-01-31] MEDS ORDERED: AZIT500T66 PO (15:23)
[2023-01-31] MEDS ORDERED: IBUP-1456 PO (15:23)
[2023-01-31 15:35] VITALS: BP 134/86; PULSE 65; RESP 18; O2SAT 98
[2023-01-31 15:38] VITALS: O2SAT 96
== END 2023-01-31 16:03 | disposition home or self-care (01) ==
LOC: ER 12:44
DX: J20.9 Acute bronchitis, unspecified (principal); R07.89 Other chest pain; F41.9 Anxiety disorder, unspecified; Z90.49 Acquired absence of other specified parts of digestive tract; Z98.890 Other specified postprocedural states
CPT/HCPCS: 36415; 71045; 80053; 80307; 81001; 81025; 83735; 83880; 84484; 85025; 85610; 85730; 93005; 94640; 99285; J7644